=== PATIENT | male | born 1965 | race Caucasian/White ===

== ENCOUNTER 2017-12-20 16:36 | Day surgery (SDC) | payer OTHER ==
[~2017-12-20 16:36] MED LIST: LIDOCAINE 2% (SDV) 5 ML INJ; PROPOFOL 60 ML
== END 2017-12-20 16:55 | disposition home or self-care (01) ==
LOC: GIL 16:36
DX: Z12.11 Encounter for screening for malignant neoplasm of colon (principal); K29.70 Gastritis, unspecified, without bleeding; B96.81 Helicobacter pylori [H. pylori] as the cause of diseases classified elsewhere; K64.8 Other hemorrhoids
CPT/HCPCS: 43239; 87081

== ENCOUNTER 2018-06-05 07:13 | Day surgery (SDC) | payer OTHER ==
[2018-06-05 08:15] LABS: ADD MAN DIFF? NO
[2018-06-05 08:20] LABS: BASOPHIL # 0.1 10^3/ul (0.0-0.1); EOSINOPHILS # 0.3 10^3/ul (0.0-0.5); EOSINOPHILS % 4.1 % (0.0-7.0); HEMATOCRIT 43.4 % (42.0-52.0); HEMOGLOBIN 15.3 g/dl (14.0-18.0); LYMPHOCYTES # 2.2 10^3/ul (0.8-2.9); LYMPHOCYTES % 30.9 % (15.0-51.0); MEAN CORPUSCULAR HEMOGLOBIN 31.5 pg (29.0-33.0); MEAN CORPUSCULAR HGB CONC 35.3 g/dl (32.0-37.0); MEAN CORPUSCULAR VOLUME 89.3 fl (82.0-101.0); MONOCYTE # 0.8 10^3/ul (0.3-0.9); MONOCYTES % 10.4 % (0.0-11.0); NEUTROPHIL # 3.8 10^3/ul (1.6-7.5); PLATELET COUNT 189 10^3/UL (140-415); RED BLOOD COUNT 4.86 10^6/ul (4.70-6.10); RED CELL DISTRIBUTION WIDTH 11.9 % (11.5-14.5)
[2018-06-05 08:20] LABS: WHITE BLOOD COUNT 7.2 10^3/ul (4.8-10.8)
[2018-06-05] MEDS ORDERED: HEPARIN 1000 UNITS/ML 10 ML INJ (08:28)
[2018-06-05] MEDS ORDERED: NITROGLYCERIN (IC) 100 MCG/ML INJ (08:29)
[2018-06-05] MEDS ORDERED: VERAPAMIL 5 MG INJ (08:29)
[2018-06-05] MEDS ORDERED: FENTAnyl 50 MCG/ML VIAL (08:29)
[2018-06-05] MEDS ORDERED: MIDAZOLAM 1 MG/ML 2 ML INJ (08:29)
[2018-06-05 08:37] LABS: ANION GAP 17 (8-16); BLOOD UREA NITROGEN 17 mg/dl (7-20); CALCIUM 8.9 mg/dl (8.4-10.2); CARBON DIOXIDE 25 mmol/L (21-31); CHLORIDE 105 mmol/L (97-110); CHOLESTEROL 176 mg/dl (100-200); CREATININE 0.89 mg/dl (0.61-1.24); GLUCOSE 104 mg/dl (70-220); HDL CHOLESTEROL 35 mg/dl (28-71); LDL CHOLESTEROL,CALCULATED 107 mg/dl; SODIUM 143 mmol/L (135-144); TRIGLYCERIDES 169 mg/dl (0-149)
[2018-06-05 08:39] LABS: INR 0.87; PROTIME 11.9 Sec (11.9-14.9); PT RATIO 0.9
[2018-06-05 08:40] LABS: PARTIAL THROMBOPLASTIN TIME 25.2 Sec (25.0-35.0)
[2018-06-05] MEDS ORDERED: LIDOCAINE 1% (MDV) 10 ML INJ (09:51)
[2018-06-05] MEDS ORDERED: ONDANSETRON 4 MG INJ IV (10:00)
[2018-06-05] MEDS ORDERED: ACETAMINOPHEN 325 MG TAB PO (10:00)
[2018-06-05] MEDS ORDERED: AL HYDROX/MG HYDROX/SIMETH 30 ML CUP PO (10:00)
[2018-06-05] MEDS ORDERED: morphine 2 MG INJ IV (10:00)
[2018-06-05] MEDS: SOD CHLORIDE 0.9% 1,000 ML IV (10:31)
== END 2018-06-05 15:21 | disposition home or self-care (01) ==
LOC: SDS 07:13
DX: I20.9 Angina pectoris, unspecified (principal); E78.00 Pure hypercholesterolemia, unspecified; I10 Essential (primary) hypertension; E11.9 Type 2 diabetes mellitus without complications
CPT/HCPCS: 71045; 80048; 80061; 85025; 85610; 85730; 93005; 93458